=== PATIENT | female | born 1930 | race Caucasian/White ===

== ENCOUNTER 2017-05-07 12:50 | Emergency (ER) | payer MEDICARE ==
[2017-05-07 12:57] VITALS: BP 189/87
--- NOTE | 2017-05-07 14:10 | UC ---
Back Pain HPI - HPI Summary HPI Summary: L mid back pain, sudden onset since picking up heavy lid to toilet tank 4 days ago. Denies numbness, tingling, weakness, or trouble with bowel or bladder. Has osteoporosis, no hx of back injury or surgery. - History of Current Complaint Chief Complaint: UCBackPain Stated Complaint: BACK PAIN Time Seen by Provider: 05/07/17 13:48 Hx Obtained From: Patient ?: No Onset/Duration: Sudden Onset Timing: Constant Severity Initially: Moderate Severity Currently: Moderate Back Pain: Is Discrete @ Character: Spasmodic, Stiffness Aggravating: Movement, Bending Alleviating: Rest Associated Signs And Symptoms: Negative: Swelling, Redness, Bruising - Allergies/Home Medications Allergies/Adverse Reactions: Allergies Allergy/AdvReac Type Severity Reaction Status Date / Time No Known Allergies Allergy Verified 07/15/15 21:20 PMH/Surg Hx/FS Hx/Imm Hx Previously Healthy: Yes - Surgical History Surgical History: Yes Surgery Procedure, Year, and Place: cholecystectomy - Social History Occupation: Retired Lives: Alone Alcohol Use: None Substance Use Type: None Smoking Status (MU): Light Every Day Tobacco Smoker Type: Cigarettes Have You Smoked in the Last Year: Yes Household Exposure Type: Cigarettes - Immunization History Most Recent Influenza Vaccination: 2013 Most Recent Tetanus Shot: unknown Most Recent Pneumonia Vaccination: 2013 Review of Systems Constitutional: Negative Skin: Negative Eyes: Negative ENT: Negative Respiratory: Negative Cardiovascular: Negative Gastrointestinal: Negative Genitourinary: Negative Motor: Negative Neurovascular: Negative Musculoskeletal: Arthralgia - L mid back Neurological: Negative Psychological: Negative All Other Systems Reviewed And Are Negative: Yes Physical Exam Triage Information Reviewed: Yes Appearance: No Pain Distress, Well-Nourished, Other: - significant kyphosis Vital Signs: Initial Vital Signs Temp 98 F 05/07/17 12:54 Pulse 83 05/07/17 12:54 Resp 16 05/07/17 12:54 BP 189/87 05/07/17 12:54 Pulse Ox 100 05/07/17 12:54 Vital Signs Reviewed: Yes Eye Exam: Normal, Other - s/p cataract surgery, PERRL Eyes: Positive: Conjunctiva Clear ENT Exam: Normal ENT: Positive: Normal ENT inspection, Hearing grossly normal, Pharynx normal, TMs normal Neck exam: Normal Neck: Positive: Supple, Nontender, No Lymphadenopathy Respiratory Exam: Normal Respiratory: Positive: Chest non-tender, Lungs clear, Normal breath sounds, No respiratory distress, No accessory muscle use Cardiovascular Exam: Normal Cardiovascular: Positive: RRR, No Murmur Musculoskeletal Exam: Other - generalized weakness d/t age, no focal weakness Musculoskeletal: Positive: Strength Intact, ROM Intact, Other: - pain over L paraspinal muscles Neurological Exam: Normal Neurological: Positive: Alert Psychological Exam: Normal Skin Exam: Normal Back Pain Course/Dx - Differential Dx/Diagnosis Provider Diagnoses: L back strain Discharge - Discharge Plan Condition: Stable Disposition: HOME Prescriptions: Naproxen TAB* [Naprosyn 375 mg TAB*] 375 mg PO BID PRN #10 tab PRN Reason: pain Patient Education Materials: Low Back Strain (ED) Referrals: Wilma Gonzalez MD [Primary Care Provider] - 1 Week Additional Instructions: Apply warm compresses to the painful area for 20-30 minutes 4 times per day, and try to stay as active as possible.
--- NOTE | 2017-05-07 14:42 | RAD ---
HISTORY: Back pain following lifting injury COMPARISONS: Chest x-ray dated July 19, 2015 VIEWS: 2, Frontal and lateral views of the lower thoracic and lumbar spine. FINDINGS: ALIGNMENT: There is retrolisthesis of L3 on L4 and L2 on L3 VERTEBRAL BODIES: There is diffuse osteopenia. There is mild loss of vertebral body height at T12, of uncertain acuity, new from 2015. JOINTS: There is diffuse facet hypertrophic change INTERVERTEBRAL DISCS: There is diffuse loss of intervertebral disc height. SOFT TISSUE: Unremarkable OTHER: The visualized lungs are clear. IMPRESSION: 1. OSTEOPENIA. 2. 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 3. DEGENERATIVE DISC DISEASE AND OSTEOARTHRITIS
== END 2017-05-07 15:09 | disposition home or self-care (01) ==
LOC: UCEAST 12:50
DX: S29.012A Strain of muscle and tendon of back wall of thorax, initial encounter (principal); X50.0XXA Overexertion from strenuous movement or load, initial encounter; F17.210 Nicotine dependence, cigarettes, uncomplicated
CPT/HCPCS: 72080; 99212; G0463

== ENCOUNTER → 2017-05-19 12:43 | Emergency (ER) | payer MEDICARE ==
[~2017-05-19 12:43] MED LIST: HYDROcodone/ACETAMIN 5-325 MG* 1 TAB PO ONE
[2017-05-19 16:38] VITALS: BP 141/63
--- NOTE | 2017-05-19 21:18 | ED ---
Cherri Subramanian Edward, scribed for Marcelo Ng MD on 05/19/17 at 1411 . Back Pain - HPI Summary HPI Summary: 87 y/o female presents to ED c/o lower back pain due while lifting a toilet seat. The back pain is rated @ 6/10 at triage. Back pain is aggravated with movement. The injury occurred last week. Patient has had trouble walking due to the back pain. Associated sx: loss of appetite, diarrhea, and constipation. Patient took a stool softener to relieve constipation a week ago. Patient went to [facility] five days ago but the pain has not gotten better. - History of Current Complaint Chief Complaint: EDBackInjuryPain Stated Complaint: BACK PAIN Time Seen by Provider: 05/19/17 14:05 Hx Obtained From: Patient Onset/Duration: Sudden Onset, Lasting Weeks, Still Present Onset/Duration: Started Weeks Ago - Last week, Still Present Timing: Constant Pain Intensity: 6 Pain Scale Used: 0-10 Numeric Aggravating Symptom(s): Movement Associated Signs And Symptoms: Positive: Other - Trouble walking, constipation, diarrhea, loss of appetite - Allergies/Home Medications Allergies/Adverse Reactions: Allergies Allergy/AdvReac Type Severity Reaction Status Date / Time No Known Allergies Allergy Verified 05/19/17 14:00 Home Medications: Home Medications Acetaminophen TAB* [Tylenol TAB*] 3 tab PO Q6H 05/19/17 [History Confirmed 05/19] PMH/Surg Hx/FS Hx/Imm Hx Previously Healthy: No Cardiovascular History: Reports: Hx Hypertension Respiratory History: Reports: Other Respiratory Problems/Disorders - sphenoid sinusitis GI History: Reports: Hx Diverticulosis Denies: Other GI Disorders - choley Musculoskeletal History: Reports: Hx Arthritis Sensory History: Reports: Hx Contacts or Glasses, Hx Hearing Aid, Hx Hearing Problem Opthamlomology History: Reports: Hx Contacts or Glasses - Cancer History Cancer Type, 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 Left lower leg - Surgical History Surgery Procedure, Year, and Place: cholecystectomy - Immunization History Date of Tetanus Vaccine: Within 10 years Date of Influenza Vaccine: 2011 Infectious Disease History: No Infectious Disease History: Denies: Hx Clostridium Difficile, Hx Hepatitis, Hx Human Immunodeficiency Virus (HIV), Hx of Known/Suspected MRSA, Hx Shingles, Hx Tuberculosis, Hx Known/ Suspected VRE, Hx Known/Suspected VRSA, History Other Infectious Disease, Traveled Outside the [place] in Last 30 Days - Family History Known Family History: Positive: Cardiac Disease - DC - mom, Hypertension - Mom, Other - Alzheimer's - father () - Social History Alcohol Use: None Substance Use Type: Reports: None Smoking Status (MU): Light Every Day Tobacco Smoker Type: Cigarettes Have You Smoked in the Last Year: Yes Review of Systems Constitutional: Negative Eyes: Negative ENT: Negative Cardiovascular: Negative Respiratory: Negative Positive: Diarrhea, Other - Constipation Genitourinary: Negative Positive: Arthralgia - Lower back pain Skin: Negative Neurological: Negative Psychological: Normal All Other Systems Reviewed And Are Negative: Yes Physical Exam Triage Information Reviewed: Yes Vital Signs On Initial Exam: Initial Vitals Temp Pulse Resp BP Pulse Ox 97 F 53 20 83/49 97 05/19/17 13:18 05/19/17 13:18 05/19/17 13:18 05/19/17 13:18 05/19/17 13:18 Vital Signs Reviewed: Yes Appearance: Positive: Well-Appearing, No Pain Distress Skin: Positive: Warm, Skin Color Reflects Adequate Perfusion, Dry Head/Face: Positive: Normal Head/Face Inspection Eyes: Positive: Normal ENT: Positive: Normal ENT inspection Neck: Positive: Supple, Nontender Respiratory/Lung Sounds: Positive: Clear to Auscultation, Breath Sounds Present Cardiovascular: Positive: RRR Abdomen Description: Positive: Nontender, Soft Bowel Sounds: Positive: Present Musculoskeletal: Positive: Strength/ROM Intact, Pain @ - Tender @ L cyatic, Other - Positive straight leg raise. - Jose Carlos Coma Scale Coma Scale Total: 15 Diagnostics - Vital Signs Vital Signs Temp Pulse Resp BP Pulse Ox 05/19/17 14:00 68 141/51 96 05/19/17 13:52 73 95 05/19/17 13:51 98.1 F 66 16 128/52 96 05/19/17 13:50 128/52 05/19/17 13:18 97 F 53 20 83/49 97 - Laboratory Lab Statement: Any lab studies that have been ordered have been reviewed, and results considered in the medical decision making process. Back Pain Course/Dx - Course Course Of Treatment: Ms. Don agravated her back a wek or so ago and was seen in [facility] where she had x-rays. She was D/C'd on naprosyn but it is not helping. She is barely able to take care of herself and reports that she is not eating because it is too much trouble while in pain. She was given Lannon here for pain and was much improved and felt she could manage at home. I wanted to give her a stool softener while take Lannon be she says she has it at home already. - Diagnoses Provider Diagnoses: Low back strain Discharge - Discharge Plan Condition: Stable Disposition: HOME Prescriptions: HYDROcodone/ACETAMIN 5-325 MG* [Lannon 5-325 TAB*] 1 tab PO Q6H PRN #20 tab MDD 4 PRN Reason: Pain Patient Education Materials: Low Back Strain (ED) Referrals: Wilma Gonzalez MD [Primary Care Provider] - 3 Days (F/U IN 2-3 DAYS) The documentation as recorded by the Cherri nguyen Edward accurately reflects the service I personally performed and the decisions made by me, Marcelo Ng MD.
== END | disposition home or self-care (01) ==
LOC: ED 12:43
DX: S39.012A Strain of muscle, fascia and tendon of lower back, initial encounter (principal); M54.5 Low back pain; F17.210 Nicotine dependence, cigarettes, uncomplicated; R19.7 Diarrhea, unspecified; X58.XXXA Exposure to other specified factors, initial encounter; Y93.9 Activity, unspecified; Y92.9 Unspecified place or not applicable; Y99.9 Unspecified external cause status
CPT/HCPCS: 99283

== ENCOUNTER 2017-08-08 11:54 | Inpatient (IN) | payer MEDICARE ==
[2017-08-08] MEDS ORDERED: NS 0.9% 1000 ML* 1,000 ML IV SCH (12:30)
[2017-08-08] MEDS: NS 0.9% 1000 ML* 2,000 ML IV ONE ×2 (12:43→12:46)
[2017-08-08 13:03] LABS: Comments Flag Yes; Hematocrit 43 % (35-47); Hemoglobin 14.5 g/dl (12.0-16.0); Mean Corpuscular HGB Conc 34 g/dl (31-36); Mean Corpuscular Hemoglobin 33 pg (27-31); Mean Corpuscular Volume 97 fL (80-97); Mean Platelet Volume 6 um3 (7.4-10.4); Red Blood Count 4.37 10^6/ul (4.0-5.4); Red Cell Distribution Width 17 % (10.5-15); White Blood Count 10.6 10^3/ul (3.5-10.8)
[2017-08-08 13:10] LABS: Albumin 2.9 g/dL (3.2-5.2); C Reactive Protein 6.38 mg/L (< 5.00); Calcium 8.9 mg/dL (8.6-10.3); EGFR African American 72.1 (>60); EGFR Non-African American 56.1 (>60); Globulin 2.6 g/dL (2-4); Magnesium 1.9 mg/dL (1.9-2.7); Potassium 4.3 mmol/L (3.5-5.0); Total Bilirubin 0.7 mg/dL (0.2-1.0); Total Protein 5.5 g/dL (6.4-8.9)
[2017-08-08 13:12] LABS: Troponin I 0.01 ng/mL (<0.04)
--- NOTE | 2017-08-08 13:26 | RAD ---
HISTORY: Near syncope COMPARISONS: July 19, 2015 VIEWS: 1: frontal portable view of the chest at 1:21 PM FINDINGS: LINES AND TUBES: None. CARDIOMEDIASTINAL SILHOUETTE: The cardiomediastinal silhouette is normal for portable technique. PLEURA: The costophrenic angles are sharp. No pleural abnormalities are noted. LUNG PARENCHYMA: There is hyperinflation. ABDOMEN: The upper abdomen is clear. There is no subphrenic gas. BONES AND SOFT TISSUES: No bone or soft tissue abnormalities are noted. IMPRESSION: HYPERINFLATION. NO ACTIVE CARDIOPULMONARY DISEASE.
--- NOTE | 2017-08-08 13:46 | RAD ---
CLINICAL HISTORY: Low back pain, hypertension COMPARISON: None relevant available time dictation TECHNIQUE: Multiple contiguous axial CT scans were obtained of the abdomen and pelvis, without intravenous contrast enhancement. Coronal and sagittal multiplanar reformations are submitted for review. Oral contrast was not administered. FINDINGS: The study is limited by the lack of intravenous contrast. This limits evaluation of the solid organs and vasculature. LUNG BASES: The lung bases are clear. LIVER: The liver is normal in shape, size, contour, and attenuation. BILE DUCTS: There is no intrahepatic or extrahepatic biliary dilatation. GALLBLADDER: The gallbladder is not visualized. Surgical clips are noted in the gallbladder fossa. PANCREAS: The pancreas is normal, without mass or ductal dilatation. SPLEEN: Normal in size and appearance. UPPER GI TRACT: Evaluation of the gastrointestinal tract is limited by incomplete gastric distention. The upper GI tract is unremarkable. SMALL BOWEL AND MESENTERY: The small bowel is normal in contour, course, and caliber. There is no obstruction or dilatation. COLON: There is extensive diverticulosis throughout the colon, predominantly within the descending and sigmoid colon. There is a large stool ball within the rectum. ADRENALS: Normal bilaterally. KIDNEYS: The kidneys are normal in shape, size, contour, and axis. There is no hydronephrosis or nephrolithiasis. BLADDER: The bladder is smooth in contour. PELVIC ORGANS: The uterus and adnexa are grossly normal for technique. AORTA: There is calcific atherosclerotic disease of the abdominal aorta and its branches, without aneurysmal dilatation IVC: Unremarkable LYMPH NODES: There is no lymphadenopathy by size criteria. ABDOMINAL WALL: There is no evidence for abdominal wall hernia. BONES AND SOFT TISSUES: Degenerative changes are noted of the spine. Please becoming CT of the lumbar spine OTHER: None IMPRESSION: 1. DIVERTICULOSIS. 2. LARGE STOOL BALL WITHIN THE RECTUM. 3. ATHEROSCLEROSIS
--- NOTE | 2017-08-08 13:50 | RAD ---
HISTORY: Low back pain COMPARISONS: CT of the abdomen and pelvis performed on the same date, thoracic lumbar spine dated May 07, 2017 TECHNIQUE: Multiple contiguous axial CT scans were obtained of the lumbar spine without intravenous contrast, with coronal and sagittal multiplanar reformations. FINDINGS: SPINAL CANAL: Evaluation of the central canal is limited on CT technique; however, there is no obvious canalicular mass or epidural hemorrhage. ALIGNMENT: There is a levoscoliotic curvature of the spine. There is grade 1 retrolisthesis of L2 on L3. VERTEBRAL BODIES: There is diffuse osteopenia. There has been interval progression of a compression deformity of the T12 vertebral body with moderate osseous retropulsion. JOINTS: There is diffuse facet osteoarthritic change MUSCULATURE: There is moderate atrophy. INTERVERTEBRAL DISCS: There is diffuse loss of intervertebral disc height throughout the spine. AXIAL IMAGES: T11-T12: There is moderate narrowing of central canal secondary to osseous retropulsion. T12-L1: There is mild narrowing of central canal secondary to osseous retropulsion. L1-L2: There is no osseous neural foraminal narrowing or central canal stenosis. L2-L3: There is broad-based disc bulge/rolled disc. There is moderate bilateral neuroforaminal narrowing. There is moderate to severe narrowing of the central canal. L3-L4: There is ligamentous and facet hypertrophy with a broad-based disc bulge. There is moderate narrowing of the central canal. There is severe bilateral neuroforaminal narrowing. L4-L5: There is a broad-based disc bulge with ligamentous and facet hypertrophy. There is moderate narrowing of central canal. There is moderate bilateral neural foraminal narrowing. L5-S1: There is bilateral facet hypertrophy with marginal osteophyte formation at the neural foramina bilaterally. There is severe left and moderate right neuroforaminal narrowing. There is no significant central canal stenosis. SOFT TISSUES: There is atherosclerosis of the aorta OTHER: None IMPRESSION: 1. OSTEOPENIA. 2. SCOLIOSIS. 3. INTERVAL PROGRESSION OF THE COMPRESSION DEFORMITY OF T12, WITH MODERATE OSSEOUS RETROPULSION RESULTING IN MODERATE NARROWING OF THE CENTRAL CANAL AT T11-T12 AND MILD NARROWING AT T12-L1. 4. DEGENERATIVE DISC DISEASE AND OSTEOARTHRITIS. THIS RESULTS IN MODERATE TO SEVERE NARROWING OF THE CENTRAL CANAL AT L2-L3, WITH MODERATE NARROWING AT L3-L4 AND L4-L5. 5. THERE IS MULTILEVEL NEURAL FORAMINAL NARROWING DESCRIBED ABOVE
[2017-08-08 13:53] LABS: TSH (Thyroid Stimulating Horm) 7.87 mcIU/mL (0.34-5.60)
[2017-08-08] MEDS ORDERED: Magnesium Hydroxide LIQ* 30 ML UDC PO PRN (15:24)
[2017-08-08] MEDS ORDERED: Ondansetron INJ* 2 MG/ML VIAL IV PRN (15:30)
[2017-08-08 16:11] LABS: Free T4 1.15 ng/dL (0.61-1.12)
--- NOTE | 2017-08-08 17:33 | ED ---
Flaco Subramanian Nikita, scribed for Luiz Aguila MD on 08/08/17 at 1249 . Neurological HPI - HPI Summary HPI Summary: This patient is an 87 year old F presenting to ED with a chief complaint of weakness since 1100. The patient rates the pain 0/10 in severity. Symptoms aggravated by nothing. Symptoms alleviated by nothing. Patient reports lower back pain (since 2 months ago), daughter reports fall and unresponsiveness, decreased appetite, and diarrhea then constipation for 7 days. Patient denies abdominal pain, CP, fever, chills, cough, and urinary symptoms. Son reports UTI last week. - History of Current Complaint Chief Complaint: EDWeakness Stated Complaint: NEAR SYNCOPE Time Seen by Provider: 08/08/17 12:34 Hx Obtained From: Patient, Family/Information Systems Administrator Onset/Duration: Sudden Onset - 1100 Timing: Sudden Onset Current Severity: None Pain Intensity: 0 Pain Scale Used: 0-10 Numeric Character: Other: - Patient reports lower back pain (since 2 months ago), daughter reports fall and unresponsiveness, decreased appetite, and diarrhea then constipation for 7 days. Patient denies abdominal pain, CP, fever, chills, cough, and urinary symptoms. - Additional Pertinent History Primary Care Physician: [id number] - Allergy/Home Medications Allergies/Adverse Reactions: Allergies Allergy/AdvReac Type Severity Reaction Status Date / Time No Known Allergies Allergy Verified 08/08/17 11:59 PMH/Surg Hx/FS Hx/Imm Hx Cardiovascular History: Reports: Hx Hypertension Respiratory History: Reports: Other Respiratory Problems/Disorders - sphenoid sinusitis GI History: Reports: Hx Diverticulosis Denies: Other GI Disorders - choley Musculoskeletal History: Reports: Hx Arthritis Sensory History: Reports: Hx Contacts or Glasses, Hx Hearing Aid, Hx Hearing Problem Opthamlomology History: Reports: Hx Contacts or Glasses - Cancer History Cancer Type, 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 Left lower leg - Surgical History Surgery Procedure, Year, and Place: cholecystectomy - Immunization History Date of Tetanus Vaccine: Within 10 years Date of Influenza Vaccine: 2011 Infectious Disease History: No Infectious Disease History: Denies: Hx Clostridium Difficile, Hx Hepatitis, Hx Human Immunodeficiency Virus (HIV), Hx of Known/Suspected MRSA, Hx Shingles, Hx Tuberculosis, Hx Known/ Suspected VRE, Hx Known/Suspected VRSA, History Other Infectious Disease, Traveled Outside the [place] in Last 30 Days - Family History Known Family History: Positive: Cardiac Disease - [place] - mom, Hypertension - Mom, Other - Alzheimer's - father () - Social History Alcohol Use: None Substance Use Type: Reports: None Smoking Status (MU): Light Every Day Tobacco Smoker Type: Cigarettes Have You Smoked in the Last Year: Yes Review of Systems Negative: Fever, Chills Negative: Chest Pain Negative: Cough Positive: Diarrhea - before constipation, Other - Constipation for 7 days, decreased appetite. Negative: Abdominal Pain Positive: no symptoms reported Positive: Other - Lower back pain, fall this morning Neurological: Other - Unresponsiveness after fall this morning All Other Systems Reviewed And Are Negative: Yes Physical Exam Triage Information Reviewed: Yes Vital Signs On Initial Exam: Initial Vitals Temp Pulse Resp BP Pulse Ox 97.2 F 76 20 94/82 98 08/08/17 11:55 08/08/17 11:55 08/08/17 11:55 08/08/17 11:55 08/08/17 11:55 Vital Signs Reviewed: Yes Appearance: Positive: No Pain Distress, Ill-Appearing - Moderate Skin: Positive: Warm, Skin Color Reflects Adequate Perfusion, Dry Head/Face: Positive: Normal Head/Face Inspection Eyes: Positive: EOMI, KYRA ENT: Positive: Other - Dry oral mucosa Neck: Positive: Supple, Nontender, Other: - Nondistended Respiratory/Lung Sounds: Positive: Clear to Auscultation, Breath Sounds Present Cardiovascular: Positive: Tachycardia Abdomen Description: Positive: Nontender, Soft Bowel Sounds: Positive: Hypoactive Musculoskeletal: Positive: Normal, Strength/ROM Intact, Other - Pt can move all four extremities Neurological: Positive: Normal, Sensory/Motor Intact, Alert, Oriented to Person Place, Time, Other - follows commands, speaks spontaneously Diagnostics - Vital Signs Vital Signs Temp Pulse Resp BP Pulse Ox 08/08/17 11:55 97.2 F 76 20 94/82 98 - Laboratory Lab Results: Lab Results 08/08/17 08/08/17 08/08/17 Range/Units 12:40 12:40 12:40 WBC (3.5-10.8) 10^3/ul RBC (4.0-5.4) 10^6/ul Hgb (12.0-16.0) g/dl Hct (35-47) % MCV (80-97) fL MCH (27-31) pg MCHC (31-36) g/dl RDW (10.5-15) % Plt Count (150-450) 10^3/ul MPV (7.4-10.4) um3 Neut % (Auto) (38-83) % Lymph % (Auto) (25-47) % [place] % (Auto) (1-9) % Eos % (Auto) (0-6) % Baso % (Auto) (0-2) % Absolute Neuts (auto) (1.5-7.7) 10^3/ul Absolute Lymphs (auto) (1.0-4.8) 10^3/ul Absolute Monos (auto) (0-0.8) 10^3/ul Absolute Eos (auto) (0-0.6) 10^3/ul Absolute Basos (auto) (0-0.2) 10^3/ul Absolute Nucleated RBC 10^3/ul Nucleated RBC % INR (Anticoag Therapy) 0.88 L (0.89-1.11) APTT 28.3 (26.0-36.3) seconds Sodium 127 L (133-145) mmol/L Potassium 4.3 (3.5-5.0) mmol/L Chloride 94 L (101-111) mmol/L Carbon Dioxide 22 (22-32) mmol/L Anion Gap 11 (2-11) mmol/L BUN 16 (6-24) mg/dL Creatinine 0.94 (0.51-0.95) mg/dL Est GFR ( Amer) 72.1 (>60) Est GFR (Non-Af Amer) 56.1 (>60) BUN/Creatinine Ratio 17.0 (8-20) Glucose 132 H (70-100) mg/dL Lactic Acid (0.5-2.0) mmol/L Calcium 8.9 (8.6-10.3) mg/dL Magnesium 1.9 (1.9-2.7) mg/dL Total Bilirubin 0.70 (0.2-1.0) mg/dL AST 41 H (13-39) U/L ALT 22 (7-52) U/L Alkaline Phosphatase 103 (34-104) U/L Total Creatine Kinase 36 (10-223) U/L CK-MB (CK-2) 2.9 (0.6-6.3) ng/mL Troponin I 0.01 (<0.04) ng/mL C-Reactive Protein 6.38 H (< 5.00) mg/L B-Natriuretic Peptide 291 H ( - 100) pg/mL Total Protein 5.5 L (6.4-8.9) g/dL Albumin 2.9 L (3.2-5.2) g/dL Globulin 2.6 (2-4) g/dL Albumin/Globulin Ratio 1.1 (1-3) Lipase 66 (11.0-82.0) U/L TSH 7.87 H (0.34-5.60) mcIU/mL Free T4 1.15 H (0.61-1.12) ng/dL Free T3 3.00 (2.5-3.9) pg/mL 08/08/17 08/08/17 Range/Units 12:40 12:40 WBC 10.6 (3.5-10.8) 10^3/ul RBC 4.37 (4.0-5.4) 10^6/ul Hgb 14.5 (12.0-16.0) g/dl Hct 43 (35-47) % MCV 97 (80-97) fL MCH 33 H (27-31) pg MCHC 34 (31-36) g/dl RDW 17 H (10.5-15) % Plt Count 481 H (150-450) 10^3/ul MPV 6 L (7.4-10.4) um3 Neut % (Auto) 77.3 (38-83) % Lymph % (Auto) 13.9 L (25-47) % [place] % (Auto) 7.7 (1-9) % Eos % (Auto) 0.6 (0-6) % Baso % (Auto) 0.5 (0-2) % Absolute Neuts (auto) 8.2 H (1.5-7.7) 10^3/ul Absolute Lymphs (auto) 1.5 (1.0-4.8) 10^3/ul Absolute Monos (auto) 0.8 (0-0.8) 10^3/ul Absolute Eos (auto) 0.1 (0-0.6) 10^3/ul Absolute Basos (auto) 0.1 (0-0.2) 10^3/ul Absolute Nucleated RBC 0.02 10^3/ul Nucleated RBC % 0.2 INR (Anticoag Therapy) (0.89-1.11) APTT (26.0-36.3) seconds Sodium (133-145) mmol/L Potassium (3.5-5.0) mmol/L Chloride (101-111) mmol/L Carbon Dioxide (22-32) mmol/L Anion Gap (2-11) mmol/L BUN (6-24) mg/dL Creatinine (0.51-0.95) mg/dL Est GFR ( Amer) (>60) Est GFR (Non-Af Amer) (>60) BUN/Creatinine Ratio (8-20) Glucose (70-100) mg/dL Lactic Acid 3.1 H* (0.5-2.0) mmol/L Calcium (8.6-10.3) mg/dL Magnesium (1.9-2.7) mg/dL Total Bilirubin (0.2-1.0) mg/dL AST (13-39) U/L ALT (7-52) U/L Alkaline Phosphatase (34-104) U/L Total Creatine Kinase (10-223) U/L CK-MB (CK-2) (0.6-6.3) ng/mL Troponin I (<0.04) ng/mL C-Reactive Protein (< 5.00) mg/L B-Natriuretic Peptide ( - 100) pg/mL Total Protein (6.4-8.9) g/dL Albumin (3.2-5.2) g/dL Globulin (2-4) g/dL Albumin/Globulin Ratio (1-3) Lipase (11.0-82.0) U/L TSH (0.34-5.60) mcIU/mL Free T4 (0.61-1.12) ng/dL Free T3 (2.5-3.9) pg/mL Result Diagrams: 08/08/17 12:40 08/08/17 12:40 Lab Statement: Any lab studies that have been ordered have been reviewed, and results considered in the medical decision making process. - Radiology CXR Radiology Interpretation Completed By: Radiologist - HYPERINFLATION. NO ACTIVE CARDIOPULMONARY DISEASE. ED physician has reviewed this radiology report and agrees. - CT L-spine CT Interpretation Completed By: Radiologist - 1. OSTEOPENIA. 2. SCOLIOSIS. 3. INTERVAL PROGRESSION OF THE COMPRESSION DEFORMITY OF T12, WITH MODERATE OSSEOUS RETROPULSION RESULTING IN MODERATE NARROWING OF THE CENTRAL CANAL AT T11 -T12 AND MILD NARROWING AT T12-L1. 4. DEGENERATIVE DISC DISEASE AND OSTEOARTHRITIS. THIS RESULTS IN MODERATE TO SEVERE NARROWING OF THE CENTRAL CANAL AT L2-L3, WITH MODERATE NARROWING AT L3-L4 AND L4-L5. 5. THERE IS MULTILEVEL NEURAL FORAMINAL NARROWING DESCRIBED ABOVE. ED physician has reviewed this radiology report and agrees. Abd/Pel CT Interpretation Completed By: Radiologist - 1. DIVERTICULOSIS. 2. LARGE STOOL BALL WITHIN THE RECTUM. 3. ATHEROSCLEROSIS. ED physician has reviewed this radiology report and agrees. - EKG 1501 Cardiac Rate: NL - 83 bpm EKG Rhythm: Sinus Rhythm EKG Interpretation: Positive PVCs, Flip T in lateral leads Course/Dx - Course Assessment/Plan: This patient is an 87 year old F presenting to ED with a chief complaint of weakness since 1100. The patient rates the pain 0/10 in severity. Symptoms aggravated by nothing. Symptoms alleviated by nothing. Patient reports lower back pain (since 2 months ago), daughter reports fall and unresponsiveness , decreased appetite, and diarrhea then constipation for 7 days. Patient denies abdominal pain, CP, fever, chills, cough, and urinary symptoms. Medications reviewed. CXR reveals HYPERINFLATION. NO ACTIVE CARDIOPULMONARY DISEASE. L- spine CT reveals 1. OSTEOPENIA. 2. SCOLIOSIS. 3. INTERVAL PROGRESSION OF THE COMPRESSION DEFORMITY OF T12, WITH MODERATE OSSEOUS RETROPULSION RESULTING IN MODERATE NARROWING OF THE CENTRAL CANAL AT T11-T12 AND MILD NARROWING AT T12- L1. 4. DEGENERATIVE DISC DISEASE AND OSTEOARTHRITIS. THIS RESULTS IN MODERATE TO SEVERE NARROWING OF THE CENTRAL CANAL AT L2-L3, WITH MODERATE NARROWING AT L3 -L4 AND L4-L5. 5. THERE IS MULTILEVEL NEURAL FORAMINAL NARROWING DESCRIBED ABOVE. Abdomen/Pelvis CT reveals 1. DIVERTICULOSIS. 2. LARGE STOOL BALL WITHIN THE RECTUM. 3. ATHEROSCLEROSIS. ED physician has reviewed this radiology report and agrees. EKG reveals NSR at 83 bpm, positive PVCs, and flip T in lateral leads. Consulted with Dr. Good at 1347 who accepts pt for admission. In the ED course, pt's BP was 102/47. Pt was also given fluids in the ED course. Pt will be admitted to ED. Pt is agreeable with this plan. ADMIT HOSPITALIST. - Diagnoses Provider Diagnoses: Weakness, Hypotension, Near syncope - Physician Notifications Discussed Care Of Patient With: Conrado Good Time Discussed With Above Provider: 13:47 Instructed by Provider To: Other - Consulted with Dr. Good who accepts pt for admission. - Critical Care Time Critical Care Time: 30-74 min Discharge - Discharge Plan Condition: Fair Disposition: ADMITTED TO [facility] documentation as recorded by the Flaco nguyen Nikita accurately reflects the service I personally performed and the decisions made by me, Luiz Aguila MD.
--- NOTE | 2017-08-08 20:32 | HP ---
CC: Dr. Gonzalez * ADMISSION HISTORY AND PHYSICAL: DATE OF ADMISSION: 08/08/17 PRIMARY CARE PROVIDER: Dr. Gonzalez. HEALTHCARE PROXY: Her son, Sadi. CODE STATUS: Full. Discussed with the patient with her son present. SOURCE OF INFORMATION: History obtained from interview with the patient and her son. RELIABILITY: From son was good. From the patient, average to poor. CHIEF COMPLAINT: Fall and weakness. HISTORY OF PRESENT ILLNESS: This is an 87-year-old female, who suffered a T12 fracture in the beginning of June after lifting the top of her toilet bowl. Since that time, she has had progressive decline with increasing malaise and weakness. Around the same time, has had a back injury. She started a BRAT diet secondary to diarrhea several months ago and also took Imodium approximately 2 weeks prior to presentation. Since that time over the last 12 days, she has had constipation. Over the last several months, the patient is eating and drinking far less. Approximately 2 weeks prior to presentation, her urine was noted to be dark and urinalysis was performed, which was reportedly consistent with urinary tract infection and she was treated with antibiotics for 5 days. Today, her son comes to see her 2 to 3 times per day and while there, she had used the bathroom and coming out, got weak and slumped to the floor. She had no head strike, no loss of consciousness, no seizure-like activity. No preceding symptoms, noting she just felt weak and her legs could not support her. She denied chest pain or shortness of breath, nausea or vomiting. No lightheadedness or other associated symptoms. She has had no dysuria, frequency, or hesitancy. No cough, fever, chills, or night sweats. The patient has been losing weight over the last couple of months with her decreased oral intake, although there is no weight currently in the emergency room to compare to. It appears that her previous weights in May were approximately 62.5 kilograms. On the presentation to the emergency room, the patient's blood pressure was 59/29. After 2 L of volume resuscitation when seen by this author, her blood pressure was 126/68. When seen by this author, she was asymptomatic. PAST MEDICAL HISTORY: Includes extensive tobacco use, COPD, hypertension, episodes of epistaxis, palpitations, recent urinary tract infection, recent T12 compression fracture, remote cholecystectomy. MEDICATIONS: Home medications include metoprolol XL 50 mg daily. FAMILY HISTORY: No history of CAD. Positive for COPD. SOCIAL HISTORY: History of tobacco use, quit 2 months prior. No longer drinks any alcohol. Lives alone in [facility]. REVIEW OF SYSTEMS: As per HPI, otherwise all other systems negative. PHYSICAL EXAMINATION GENERAL: Elderly female, lying flat on bed. She is interactive. VITAL SIGNS: In the emergency room, 126/68, heart rate 83, respiratory rate 16 , and she is 96% on room air. HEENT: Oropharynx is clear. She has dry mucous membranes. Sclerae anicteric. NECK: She has nonelevated JVD. LUNGS: Her lungs are clear to auscultation. HEART: Regular rate and rhythm. No murmurs, rubs, or gallops. ABDOMEN: Scaphoid, soft, nontender, nondistended. EXTREMITIES: Warm, well perfused. NEUROLOGIC: She is alert and oriented x3. Her cranial nerves are intact. PSYCH: No apparent anxiety, agitation, or depression. SKIN: Her skin has diffuse lesions, most prominent on face, her left ear, her legs, consistent with seborrheic dermatitis and additionally basal cell carcinoma. DIAGNOSTIC STUDIES/LAB DATA: Labs reviewed: White blood cell count 10.6, hemoglobin 14.5, and platelets 481. INR 0.88. Sodium 127, chloride 94, BUN 16 , creatinine 0.94. Lactic acid 3.1. CRP 6.3. BNP 291. Albumin 2.9. TSH is 7.87. Lipase __wnl__. Urinalysis is pending. EKG: Normal sinus rhythm, left axis, late R-wave progression, downsloping ST depression in V5 alone, T-wave inversion in V5 and V6, Q waves in II, III, aVF, V2 through V4. Q waves are not new. CT spine, impression: Osteopenia, scoliosis, interval progression in the compression deformity at T12, multilevel neural foraminal degeneration. CT abdomen and pelvis: Diverticulosis, large stool ball within the rectum, atherosclerosis. Chest x-ray, impression: Hyperinflation. No active cardiopulmonary disease. ASSESSMENT AND PLAN: This is an 87-year-old female, several months decline after a T12 fracture, now presenting after a fall on the floor with increased weakness, found hypotensive in the emergency room. 1. Hypotension. In the setting of several months' deconditioning and increased intake and rapid response with 2 L of normal saline, this does appear to be volume mediated. However, this is in the recent setting of a urinary tract infection. A repeat urine culture is warranted. There does not appear to be any other sign of active infection. First troponin is negative, although cardiac etiology is potential. Repeat troponin, place on telemetry. Check transthoracic echocardiogram. TSH is elevated. We will add free T3 and T4, to monitor. Increased lactic acid in the setting of above, repeat now. 2. Stool impaction. The patient needs digital disimpaction as well as bowel regimen. 3. Hypothyroidism. Add free T3 and T4 to TSH. 4. T12 compression fracture. Progression noted on CAT scan. No neurological findings. 5. Hyponatremia in the setting of hypovolemia. Received 2 L normal saline, we will continue 150 cc for two additional liters, then stop. 6. DVT prophylaxis. Heparin subcu. [id number]/[facility] #: [id number] [facility]
[2017-08-08] MEDS: Senna TAB PO SCH (22:14)
[2017-08-08] MEDS: Docusate CAP* 100 MG PO SCH (22:16)
[2017-08-08] MEDS: Heparin VIAL(*) 5000 UNITS/ML VIAL (FIVE THOUSAND) SUBCUT SCH (22:16)
[2017-08-08] MEDS: NS 0.9% 1000 ML* 1,000 ML IV SCH (23:00)
[2017-08-08 23:53] LABS: Urine Bacteria Absent (Absent); Urine Bilirubin Negative (Negative); Urine Glucose Negative (Negative); Urine Nitrite Negative (Negative)
[2017-08-09] MEDS: Acetaminophen TAB* 325 MG PO PRN ×2 (02:54→20:40)
[2017-08-09] MEDS: Heparin VIAL(*) 5000 UNITS/ML VIAL (FIVE THOUSAND) SUBCUT SCH ×3 (05:10→20:41)
[2017-08-09 08:42] LABS: BUN/Creatinine Ratio 16.9 (8-20); Calcium 7.8 mg/dL (8.6-10.3); EGFR African American 110.4 (>60); EGFR Non-African American 85.8 (>60); Potassium 3.3 mmol/L (3.5-5.0)
[2017-08-09 08:46] LABS: Hematocrit 40 % (35-47); Hemoglobin 13.5 g/dl (12.0-16.0); Mean Corpuscular HGB Conc 34 g/dl (31-36); Mean Corpuscular Hemoglobin 33 pg (27-31); Mean Corpuscular Volume 97 fL (80-97); Mean Platelet Volume 7 um3 (7.4-10.4); Red Blood Count 4.08 10^6/ul (4.0-5.4); Red Cell Distribution Width 17 % (10.5-15); White Blood Count 8.4 10^3/ul (3.5-10.8)
[2017-08-09] MEDS ORDERED: Influenza VAC *QUAD* 2017-18* 0.5 ML SYRINGE IM ONE (09:00)
[2017-08-09] MEDS: NS 0.9% 1000 ML* 1,000 ML IV SCH (10:24)
[2017-08-09] MEDS: Senna TAB PO SCH ×2 (10:25→20:40)
[2017-08-09] MEDS: Docusate CAP* 100 MG PO SCH ×2 (10:28→20:40)
[2017-08-09] MEDS ORDERED: Potassium Chlor TAB* 20 MEQ TAB.ER PO ONE (10:41)
--- NOTE | 2017-08-09 14:56 | PN ---
Subjective Date of Service: 08/09/17 Interval History: Seen and examined this AM and again this afternoon with her son present She feels much better and more alert today Feels close to baseline Pain still present in back\ Denies any chest pain, SOB, N/V, LH Digital disimpaction performed but no BM since that time Feels appetite has improved since yesterday Objective Active Medications: Acetaminophen (Tylenol Tab*) 650 mg PO Q6H PRN PRN Reason: PAIN Last Admin: 08/09/17 02:54 Dose: 650 mg Docusate Sodium (Colace Cap*) 100 mg PO BID [facility] Last Admin: 08/09/17 10:28 Dose: 100 mg Heparin Sodium (Porcine) (Heparin Vial(*)) 5,000 units SUBCUT Q8HR [facility] Last Admin: 08/09/17 14:30 Dose: 5,000 units Sodium Chloride (Ns 0.9% 1000 Ml*) 1,000 mls @ 150 mls/hr IV PER RATE [facility] Stop: 08/09/17 22:09 Last Admin: 08/09/17 10:24 Dose: 150 mls/hr Magnesium Hydroxide (Milk Of Magnesia Liq*) 30 ml PO Q4H PRN PRN Reason: CONSTIPATION Ondansetron HCl (Zofran Inj*) 4 mg IV Q4H PRN PRN Reason: NAUSEA Senna (Senokot Tab*) 1 tab PO BID [facility] Last Admin: 08/09/17 10:25 Dose: 1 tab Vital Signs 08/08/17 08/08/17 08/08/17 15:30 16:00 16:30 Temperature Pulse Rate 78 77 72 Respiratory 14 15 12 Rate Blood Pressure (mmHg) O2 Sat by Pulse 96 94 96 Oximetry 08/08/17 08/08/17 08/08/17 16:48 18:00 19:11 Temperature 98.1 F 97.5 F 97.3 F Pulse Rate 72 Respiratory 18 Rate Blood Pressure 127/82 (mmHg) O2 Sat by Pulse 100 Oximetry 08/08/17 08/08/17 08/09/17 19:24 20:00 00:00 Temperature 97.3 F Pulse Rate 71 90 Respiratory 16 18 20 Rate Blood Pressure 125/75 132/82 (mmHg) O2 Sat by Pulse 100 100 Oximetry 08/09/17 08/09/17 08/09/17 03:51 07:31 08:00 Temperature 97.5 F 98.4 F Pulse Rate 81 78 Respiratory 20 18 18 Rate Blood Pressure 144/58 123/53 (mmHg) O2 Sat by Pulse 98 98 Oximetry 08/09/17 12:33 Temperature 98.8 F Pulse Rate 78 Respiratory 18 Rate Blood Pressure 140/67 (mmHg) O2 Sat by Pulse 97 Oximetry Oxygen Devices in Use Now: None Appearance: sitting up in bed, interactive, NAD Eyes: No Scleral Icterus, PERRLA Ears/Nose/Mouth/Throat: Clear Oropharnyx, Mucous Membranes Moist Neck: NL Appearance and Movements; NL JVP, Trachea Midline Respiratory: Symmetrical Chest Expansion and Respiratory Effort, Clear to Auscultation Cardiovascular: RRR Abdominal: NL Sounds; No Tenderness; No Distention, No Hepatosplenomegaly Lymphatic: No Cervical Adenopathy Extremities: No Edema Neurological: Alert and Oriented x 3 Result Diagrams: 08/09/17 08:01 08/09/17 08:01 Additional Lab and Data: Lab Results 08/08/17 08/08/17 08/08/17 Range/Units 12:40 12:40 12:40 WBC (3.5-10.8) 10^3/ul RBC (4.0-5.4) 10^6/ul Hgb (12.0-16.0) g/dl Hct (35-47) % MCV (80-97) fL MCH (27-31) pg MCHC (31-36) g/dl RDW (10.5-15) % Plt Count (150-450) 10^3/ul MPV (7.4-10.4) um3 Neut % (Auto) (38-83) % Lymph % (Auto) (25-47) % [place] % (Auto) (1-9) % Eos % (Auto) (0-6) % Baso % (Auto) (0-2) % Absolute Neuts (auto) (1.5-7.7) 10^3/ul Absolute Lymphs (auto) (1.0-4.8) 10^3/ul Absolute Monos (auto) (0-0.8) 10^3/ul Absolute Eos (auto) (0-0.6) 10^3/ul Absolute Basos (auto) (0-0.2) 10^3/ul Absolute Nucleated RBC 10^3/ul Nucleated RBC % INR (Anticoag Therapy) 0.88 L (0.89-1.11) APTT 28.3 (26.0-36.3) seconds Sodium 127 L (133-145) mmol/L Potassium 4.3 (3.5-5.0) mmol/L Chloride 94 L (101-111) mmol/L Carbon Dioxide 22 (22-32) mmol/L Anion Gap 11 (2-11) mmol/L BUN 16 (6-24) mg/dL Creatinine 0.94 (0.51-0.95) mg/dL Est GFR ( Amer) 72.1 (>60) Est GFR (Non-Af Amer) 56.1 (>60) BUN/Creatinine Ratio 17.0 (8-20) Glucose 132 H (70-100) mg/dL Lactic Acid (0.5-2.0) mmol/L Calcium 8.9 (8.6-10.3) mg/dL Magnesium 1.9 (1.9-2.7) mg/dL Total Bilirubin 0.70 (0.2-1.0) mg/dL AST 41 H (13-39) U/L ALT 22 (7-52) U/L Alkaline Phosphatase 103 (34-104) U/L Total Creatine Kinase 36 (10-223) U/L CK-MB (CK-2) 2.9 (0.6-6.3) ng/mL Troponin I 0.01 (<0.04) ng/mL C-Reactive Protein 6.38 H (< 5.00) mg/L B-Natriuretic Peptide 291 H ( - 100) pg/mL Total Protein 5.5 L (6.4-8.9) g/dL Albumin 2.9 L (3.2-5.2) g/dL Globulin 2.6 (2-4) g/dL Albumin/Globulin Ratio 1.1 (1-3) Lipase 66 (11.0-82.0) U/L TSH 7.87 H (0.34-5.60) mcIU/mL Free T4 1.15 H (0.61-1.12) ng/dL Free T3 3.00 (2.5-3.9) pg/mL 08/08/17 08/08/17 Range/Units 12:40 12:40 WBC 10.6 (3.5-10.8) 10^3/ul RBC 4.37 (4.0-5.4) 10^6/ul Hgb 14.5 (12.0-16.0) g/dl Hct 43 (35-47) % MCV 97 (80-97) fL MCH 33 H (27-31) pg MCHC 34 (31-36) g/dl RDW 17 H (10.5-15) % Plt Count 481 H (150-450) 10^3/ul MPV 6 L (7.4-10.4) um3 Neut % (Auto) 77.3 (38-83) % Lymph % (Auto) 13.9 L (25-47) % [place] % (Auto) 7.7 (1-9) % Eos % (Auto) 0.6 (0-6) % Baso % (Auto) 0.5 (0-2) % Absolute Neuts (auto) 8.2 H (1.5-7.7) 10^3/ul Absolute Lymphs (auto) 1.5 (1.0-4.8) 10^3/ul Absolute Monos (auto) 0.8 (0-0.8) 10^3/ul Absolute Eos (auto) 0.1 (0-0.6) 10^3/ul Absolute Basos (auto) 0.1 (0-0.2) 10^3/ul Absolute Nucleated RBC 0.02 10^3/ul Nucleated RBC % 0.2 INR (Anticoag Therapy) (0.89-1.11) APTT (26.0-36.3) seconds Sodium (133-145) mmol/L Potassium (3.5-5.0) mmol/L Chloride (101-111) mmol/L Carbon Dioxide (22-32) mmol/L Anion Gap (2-11) mmol/L BUN (6-24) mg/dL Creatinine (0.51-0.95) mg/dL Est GFR ( Amer) (>60) Est GFR (Non-Af Amer) (>60) BUN/Creatinine Ratio (8-20) Glucose (70-100) mg/dL Lactic Acid 3.1 H* (0.5-2.0) mmol/L Calcium (8.6-10.3) mg/dL Magnesium (1.9-2.7) mg/dL Total Bilirubin (0.2-1.0) mg/dL AST (13-39) U/L ALT (7-52) U/L Alkaline Phosphatase (34-104) U/L Total Creatine Kinase (10-223) U/L CK-MB (CK-2) (0.6-6.3) ng/mL Troponin I (<0.04) ng/mL C-Reactive Protein (< 5.00) mg/L B-Natriuretic Peptide ( - 100) pg/mL Total Protein (6.4-8.9) g/dL Albumin (3.2-5.2) g/dL Globulin (2-4) g/dL Albumin/Globulin Ratio (1-3) Lipase (11.0-82.0) U/L TSH (0.34-5.60) mcIU/mL Free T4 (0.61-1.12) ng/dL Free T3 (2.5-3.9) pg/mL Assess/Plan/Problems-Billing Assessment: 87 yo F h/o T12 fracture, COPD, HTN p/w hypotension and fatigue in setting of progressive decline in PO intake - Patient Problems (1) Hypotension Comment: resolved with IVF Suspect all in setting of hypovolemia in setting of decreased PO intake over many weeks stop IVF continue to hold metoprolol (2) T12 compression fracture Comment: contributing to decreased mobility, decreased energy, decrease PO intake PT consult appreciated Would benefit from acute physical therapy (3) Impacted stool in rectum Comment: disimpacted c/w MOM, colace, senna (4) Hyponatremia Comment: in setting of hypovolemia resolved with IVF (5) COPD (chronic obstructive pulmonary disease) Comment: stable on no controlled medications (6) DVT prophylaxis Comment: HSQ
[2017-08-10] MEDS: Acetaminophen TAB* 325 MG PO PRN (03:44)
[2017-08-10] MEDS: Heparin VIAL(*) 5000 UNITS/ML VIAL (FIVE THOUSAND) SUBCUT SCH ×3 (05:44→21:01)
[2017-08-10] MEDS: Docusate CAP* 100 MG PO SCH ×2 (08:39→21:01)
[2017-08-10] MEDS: Senna TAB PO SCH ×2 (08:39→21:01)
[2017-08-10] MEDS: Metoprolol Succinate XL TAB* 50 MG PO SCH (10:57)
[2017-08-10 13:44] LABS: BUN/Creatinine Ratio 18.2 (8-20); Calcium 8.3 mg/dL (8.6-10.3); EGFR African American 108.4 (>60); EGFR Non-African American 84.3 (>60); Magnesium 1.7 mg/dL (1.9-2.7); Potassium 4.2 mmol/L (3.5-5.0)
--- NOTE | 2017-08-10 15:51 | ECHO ---
Patient: ANAND CABEZAS [facility] Rec#: [id number] : 1930 Date: 08/10/2017 Age: 87y Height: 160.02 cm / 63.0 in Weight: 52.62 kg / 116.0 lbs Sex: F BSA: 1.53 Room#: 446 Admit Date#: 08/08/2017 Type: Inpatient Referring: Conrado Good MD Reading: Nelson Almanzar MD [employer] Helper: Danielle Stratton,RDCS,RDMS CC: Wilma Gonzalez MD Transthoracic Echocardiogram Indication: Hypotension BP: 143/59 HR: 88 Rhythm: NSR with PACs Findings History: Smoker, COPD, HTN, palpitations Technical Comments: The study quality is good. Left Ventricle: The left ventricular chamber size is normal. Mild to moderate concentric left ventricular hypertrophy is observed. The estimated ejection fraction is 55-60%. Abnormal left ventricular diastolic filling is observed, consistent with impaired relaxation. Left Atrium: The left atrium is moderately dilated. Right Ventricle: The right ventricular chamber size and systolic function are within normal limits. Right Atrium: The right atrium is mildly dilated. There is evidence of an atrial septal aneurysm. Aortic Valve: The aortic valve is trileaflet. The aortic valve leaflets are mildly thickened. There is a trace of aortic regurgitation. There is no evidence of aortic stenosis. Mitral Valve: There is mitral annular calcification. There is mild mitral regurgitation. There is no evidence of mitral stenosis. Tricuspid Valve: The tricuspid valve leaflets are normal. There is mild to moderate tricuspid regurgitation. There is evidence of mild pulmonary hypertension. Pulmonic Valve: There is no evidence of pulmonic valve thickening. There is no evidence of pulmonic regurgitation. Pericardium: There is no significant pericardial effusion. Aorta: The aortic root appears normal. There is no dilatation of the aortic arch. Pulmonary Artery: The main pulmonary artery is not well visualized. Venous: The inferior vena cava is dilated. There is less than 50% respiratory change in the inferior vena cava dimension. Summary: There was not any prior study for comparison. Conclusions Mild to moderate concentric left ventricular hypertrophy is observed. The left ventricular chamber size is normal. The estimated ejection fraction is 55-60%. Abnormal left ventricular diastolic filling is observed, consistent with impaired relaxation. The left atrium is moderately dilated. The right atrium is mildly dilated. There is a trace of aortic regurgitation. There is mild mitral regurgitation. There is mild to moderate tricuspid regurgitation. There is evidence of mild pulmonary hypertension. Measurements Name Value Normal Range RVIDd (AP) 2D 2.3 cm (0.9 - 2.6) RVDdMajor (2D) 2.3 cm (2.2 - 4.4) RAd ISD 4CH 5.3 cm (3.4 - 4.9) RA (A4C)W 3.6 cm (2.9 - 4.6) IVSd (2D) 1.3 cm (0.6 - 1) LVPWd (2D) 1.4 cm (0.6 - 1) LVIDd (2D) 2.9 cm (3.6 - 5.4) LVIDs (2D) 2.5 cm - LV FS (2D) 13 % (25 - 45) Aortic Annulus 1.8 cm (1.4 - 2.6) Ao root diameter (2D) 2.8 cm (2.1 - 3.5) Ascending Ao 3.4 cm (2.1 - 3.4) Aortic arch 2.2 cm (1.8 - 3.4) LA dimension (AP) 2D 4.1 cm (2.3 - 3.8) LAd ISD 4CH 4.9 cm (2.9 - 5.3) LA ISD 4CH W 5.1 cm (2.5 - 4.5) Name Value Normal Range LA ESV SP 4CH (A/L) 68.81 ml - LA ESV SP 2CH (A/L) 64.34 ml - LA ESV BP (A/L) 67.44 ml - LA ESV BP (A/L) index 44 ml/m2 - LA ESV SP 4CH (MOD) 59.21 ml - LA ESV SP 2CH (MOD) 61.49 ml - Name Value Normal Range MV E-wave Vmax 0.5 m/sec - MV deceleration time 256 msec - MV A-wave Vmax 0.7 m/sec - MV E:A ratio 0.8 ratio - LV septal e' Vmax 0.04 m/sec - LV lateral e' Vmax 0.06 m/sec - LV E:e' septal ratio 12.5 ratio - LV E:e' lateral ratio 8.3 ratio - Name Value Normal Range AV Vmax 1 m/sec - AV peak gradient 4 mmHg - LVOT Vmax 0.7 m/sec - LVOT peak gradient 2 mmHg - Name Value Normal Range TR Vmax 2.7 m/sec - TR peak gradient 29 mmHg - RAP 8 mmHg - RVSP 37 mmHg - IVC diameter 2.6 cm - Name Value Normal Range PV Vmax 0.4 m/sec - PV peak gradient 0.7 mmHg -
--- NOTE | 2017-08-10 16:07 | PN ---
Subjective Date of Service: 08/10/17 Interval History: Feels well No CP, SOB, N/V, LH Interested in rehab several beat NSVT today Appears to be in afib on tele and EKG Objective Active Medications: Acetaminophen (Tylenol Tab*) 650 mg PO Q6H PRN PRN Reason: PAIN Last Admin: 08/10/17 03:44 Dose: 650 mg Docusate Sodium (Colace Cap*) 100 mg PO BID [facility] Last Admin: 08/10/17 08:39 Dose: 100 mg Heparin Sodium (Porcine) (Heparin Vial(*)) 5,000 units SUBCUT Q8HR [facility] Last Admin: 08/10/17 14:21 Dose: 5,000 units Magnesium Hydroxide (Milk Of Magnesia Liq*) 30 ml PO Q4H PRN PRN Reason: CONSTIPATION Metoprolol Succinate (Toprol Xl Tab*) 50 mg PO DAILY [facility] Last Admin: 08/10/17 10:57 Dose: 50 mg Ondansetron HCl (Zofran Inj*) 4 mg IV Q4H PRN PRN Reason: NAUSEA Senna (Senokot Tab*) 1 tab PO BID [facility] Last Admin: 08/10/17 08:39 Dose: 1 tab Vital Signs 08/09/17 08/09/17 08/10/17 20:00 23:53 03:45 Temperature 97.7 F 98.3 F 97.3 F Pulse Rate 85 84 78 Respiratory 18 20 20 Rate Blood Pressure 138/55 125/45 143/59 (mmHg) O2 Sat by Pulse 96 94 Oximetry 08/10/17 08/10/17 08/10/17 07:16 07:38 11:00 Temperature 98.8 F Pulse Rate 76 Respiratory 18 18 Rate Blood Pressure 144/54 138/62 (mmHg) O2 Sat by Pulse 95 Oximetry 08/10/17 11:47 Temperature 97.5 F Pulse Rate 95 Respiratory 20 Rate Blood Pressure 137/63 (mmHg) O2 Sat by Pulse 100 Oximetry Oxygen Devices in Use Now: None Appearance: NAD Eyes: No Scleral Icterus, PERRLA Ears/Nose/Mouth/Throat: Clear Oropharnyx, Mucous Membranes Moist Neck: NL Appearance and Movements; NL JVP, Trachea Midline Respiratory: Symmetrical Chest Expansion and Respiratory Effort Cardiovascular: - - IRIR Abdominal: NL Sounds; No Tenderness; No Distention Lymphatic: No Cervical Adenopathy Extremities: No Edema Neurological: Alert and Oriented x 3 Result Diagrams: 08/09/17 08:01 08/10/17 13:11 Additional Lab and Data: Lab Results 08/08/17 08/08/17 08/08/17 Range/Units 12:40 12:40 12:40 WBC (3.5-10.8) 10^3/ul RBC (4.0-5.4) 10^6/ul Hgb (12.0-16.0) g/dl Hct (35-47) % MCV (80-97) fL MCH (27-31) pg MCHC (31-36) g/dl RDW (10.5-15) % Plt Count (150-450) 10^3/ul MPV (7.4-10.4) um3 Neut % (Auto) (38-83) % Lymph % (Auto) (25-47) % [place] % (Auto) (1-9) % Eos % (Auto) (0-6) % Baso % (Auto) (0-2) % Absolute Neuts (auto) (1.5-7.7) 10^3/ul Absolute Lymphs (auto) (1.0-4.8) 10^3/ul Absolute Monos (auto) (0-0.8) 10^3/ul Absolute Eos (auto) (0-0.6) 10^3/ul Absolute Basos (auto) (0-0.2) 10^3/ul Absolute Nucleated RBC 10^3/ul Nucleated RBC % INR (Anticoag Therapy) 0.88 L (0.89-1.11) APTT 28.3 (26.0-36.3) seconds Sodium 127 L (133-145) mmol/L Potassium 4.3 (3.5-5.0) mmol/L Chloride 94 L (101-111) mmol/L Carbon Dioxide 22 (22-32) mmol/L Anion Gap 11 (2-11) mmol/L BUN 16 (6-24) mg/dL Creatinine 0.94 (0.51-0.95) mg/dL Est GFR ( Amer) 72.1 (>60) Est GFR (Non-Af Amer) 56.1 (>60) BUN/Creatinine Ratio 17.0 (8-20) Glucose 132 H (70-100) mg/dL Lactic Acid (0.5-2.0) mmol/L Calcium 8.9 (8.6-10.3) mg/dL Magnesium 1.9 (1.9-2.7) mg/dL Total Bilirubin 0.70 (0.2-1.0) mg/dL AST 41 H (13-39) U/L ALT 22 (7-52) U/L Alkaline Phosphatase 103 (34-104) U/L Total Creatine Kinase 36 (10-223) U/L CK-MB (CK-2) 2.9 (0.6-6.3) ng/mL Troponin I 0.01 (<0.04) ng/mL C-Reactive Protein 6.38 H (< 5.00) mg/L B-Natriuretic Peptide 291 H ( - 100) pg/mL Total Protein 5.5 L (6.4-8.9) g/dL Albumin 2.9 L (3.2-5.2) g/dL Globulin 2.6 (2-4) g/dL Albumin/Globulin Ratio 1.1 (1-3) Lipase 66 (11.0-82.0) U/L TSH 7.87 H (0.34-5.60) mcIU/mL Free T4 1.15 H (0.61-1.12) ng/dL Free T3 3.00 (2.5-3.9) pg/mL 08/08/17 08/08/17 Range/Units 12:40 12:40 WBC 10.6 (3.5-10.8) 10^3/ul RBC 4.37 (4.0-5.4) 10^6/ul Hgb 14.5 (12.0-16.0) g/dl Hct 43 (35-47) % MCV 97 (80-97) fL MCH 33 H (27-31) pg MCHC 34 (31-36) g/dl RDW 17 H (10.5-15) % Plt Count 481 H (150-450) 10^3/ul MPV 6 L (7.4-10.4) um3 Neut % (Auto) 77.3 (38-83) % Lymph % (Auto) 13.9 L (25-47) % [place] % (Auto) 7.7 (1-9) % Eos % (Auto) 0.6 (0-6) % Baso % (Auto) 0.5 (0-2) % Absolute Neuts (auto) 8.2 H (1.5-7.7) 10^3/ul Absolute Lymphs (auto) 1.5 (1.0-4.8) 10^3/ul Absolute Monos (auto) 0.8 (0-0.8) 10^3/ul Absolute Eos (auto) 0.1 (0-0.6) 10^3/ul Absolute Basos (auto) 0.1 (0-0.2) 10^3/ul Absolute Nucleated RBC 0.02 10^3/ul Nucleated RBC % 0.2 INR (Anticoag Therapy) (0.89-1.11) APTT (26.0-36.3) seconds Sodium (133-145) mmol/L Potassium (3.5-5.0) mmol/L Chloride (101-111) mmol/L Carbon Dioxide (22-32) mmol/L Anion Gap (2-11) mmol/L BUN (6-24) mg/dL Creatinine (0.51-0.95) mg/dL Est GFR ( Amer) (>60) Est GFR (Non-Af Amer) (>60) BUN/Creatinine Ratio (8-20) Glucose (70-100) mg/dL Lactic Acid 3.1 H* (0.5-2.0) mmol/L Calcium (8.6-10.3) mg/dL Magnesium (1.9-2.7) mg/dL Total Bilirubin (0.2-1.0) mg/dL AST (13-39) U/L ALT (7-52) U/L Alkaline Phosphatase (34-104) U/L Total Creatine Kinase (10-223) U/L CK-MB (CK-2) (0.6-6.3) ng/mL Troponin I (<0.04) ng/mL C-Reactive Protein (< 5.00) mg/L B-Natriuretic Peptide ( - 100) pg/mL Total Protein (6.4-8.9) g/dL Albumin (3.2-5.2) g/dL Globulin (2-4) g/dL Albumin/Globulin Ratio (1-3) Lipase (11.0-82.0) U/L TSH (0.34-5.60) mcIU/mL Free T4 (0.61-1.12) ng/dL Free T3 (2.5-3.9) pg/mL Microbiology and Other Data: Microbiology 08/08/17 23:15 Urine Culture - Final Urine Assess/Plan/Problems-Billing Assessment: 87 yo F h/o T12 fracture, COPD, HTN p/w hypotension and fatigue in setting of progressive decline in PO intake - Patient Problems (1) Atrial fibrillation Comment: Carries history of "palpitations" but no formal h/o atrial fibrillation Will restart metoprolol that was held on admission 2/2 hypotension If remains in afib tomorrow will discuss anticoagulation (2) Hypotension Comment: resolved with IVF Suspect all in setting of hypovolemia in setting of decreased PO intake over many weeks stop IVF continue to hold metoprolol (3) T12 compression fracture Comment: contributing to decreased mobility, decreased energy, decrease PO intake PT consult appreciated Would benefit from acute physical therapy (4) Impacted stool in rectum Comment: disimpacted c/w MOM, colace, senna enema 08/10 (5) Hyponatremia Comment: in setting of hypovolemia resolved with IVF (6) COPD (chronic obstructive pulmonary disease) Comment: stable on no controlled medications (7) DVT prophylaxis Comment: HSQ
[2017-08-11] MEDS: Heparin VIAL(*) 5000 UNITS/ML VIAL (FIVE THOUSAND) SUBCUT SCH ×2 (05:09→13:42)
[2017-08-11] MEDS: Metoprolol Succinate XL TAB* 50 MG PO SCH (08:59)
[2017-08-11] MEDS: Acetaminophen TAB* 325 MG PO PRN (08:59)
[2017-08-11] MEDS: Senna TAB PO SCH ×2 (09:00→19:57)
[2017-08-11] MEDS: Docusate CAP* 100 MG PO SCH ×2 (09:00→19:57)
[2017-08-11] MEDS: HYDROcodone/ACETAMIN 5-325 MG* 1 TAB PO PRN (13:42)
[2017-08-11] MEDS ORDERED: Warfarin TAB(*) 5 MG PO ONE (17:00)
--- NOTE | 2017-08-11 17:29 | PN ---
Progress Note - Progress Note Date of Service: 08/11/17 Note: Please note, due to current Real Intent problems the usual "hospitalist progress note" template is unavailable. S: Denies SSOB, CP, N/V. Would like something "stronger" for pain when working with PT. O: NAD IRIR heart rate, rate controlled lungs CTAb abd soft NT, ND, +bs Ext warm well perfused no c/c/e AOx3, CN2-12 intact Vital Signs: Temp Pulse Resp BP Pulse Ox 98.3 F 76 18 102/47 95 08/11/17 15:13 08/11/17 15:13 08/11/17 15:42 08/11/17 15:13 08/11/17 15:13 A/P: 87 yo F h/o T12 fracture, COPD, HTN p/w hypotension in setting of decreased mobility and decreased PO intake Afib: Discussed diagnosis. Has history of epistaxis in 2014 with ICU and posterior packing. Culprit vessel never found. -coumadin 5 mg tonight coumadin 2mg starting tomorrow. Lovenox 1.5mg/kg starting tomorrow in AM T12 fracture -add hydrocodone Hyponatremia - improved with NS COPD - stable on no controller medications Disposition - declined for admission to [facility], no applying to [facility]
[2017-08-11] MEDS ORDERED: Heparin VIAL(*) 5000 UNITS/ML VIAL (FIVE THOUSAND) SUBCUT SCH (22:00)
[2017-08-12 05:33] LABS: BUN/Creatinine Ratio 13.5 (8-20); Calcium 8.1 mg/dL (8.6-10.3); EGFR Non-African American 73.9 (>60); Potassium 3.8 mmol/L (3.5-5.0)
[2017-08-12] MEDS: Senna TAB PO SCH ×2 (07:26→19:54)
[2017-08-12] MEDS: HYDROcodone/ACETAMIN 5-325 MG* 1 TAB PO PRN ×3 (07:26→17:49)
[2017-08-12] MEDS: Metoprolol Succinate XL TAB* 50 MG PO SCH (07:27)
[2017-08-12] MEDS: Docusate CAP* 100 MG PO SCH ×2 (07:28→19:54)
[2017-08-12] MEDS ORDERED: Enoxaparin(*) 80 MG/0.8 ML SYR SUBCUT SCH (09:00)
[2017-08-12 11:01] LABS: Magnesium 1.5 mg/dL (1.9-2.7)
--- NOTE | 2017-08-12 13:02 | PN ---
Subjective Date of Service: 08/12/17 Interval History: No overnight events. Ms. Don complains of feeling lightheaded in bed. She has not been out of bed yet today. She is unable to describe it further. She denies dizziness, headache, weakness, but does endorse fatigue. Her vision is blurry, but she says it is unchanged from baseline. Family History: Unchanged from Admission Social History: Unchanged from Admission Past Medical History: Unchanged from Admission Objective Active Medications: Acetaminophen (Tylenol Tab*) 650 mg PO Q6H PRN PRN Reason: PAIN Last Admin: 08/11/17 08:59 Dose: 650 mg Hydrocodone Bitart/Acetaminophen ([place] 5-325 Tab*) 1 tab PO Q4H PRN PRN Reason: PAIN Last Admin: 08/12/17 07:26 Dose: 1 tab Docusate Sodium (Colace Cap*) 100 mg PO BID [facility] Last Admin: 08/12/17 07:28 Dose: Not Given Enoxaparin Sodium (Lovenox(*)) 75 mg SUBCUT DAILY [facility] Last Admin: 08/12/17 07:27 Dose: 75 mg Magnesium Hydroxide (Milk Of Magnesia Liq*) 30 ml PO Q4H PRN PRN Reason: CONSTIPATION Metoprolol Succinate (Toprol Xl Tab*) 50 mg PO DAILY [facility] Last Admin: 08/12/17 07:27 Dose: 50 mg Ondansetron HCl (Zofran Inj*) 4 mg IV Q4H PRN PRN Reason: NAUSEA Pharmacy Profile Note (Coumadin Daily Reminder*) 0 note FOLLOW UP 1700 [facility] Last Admin: 08/11/17 16:51 Dose: 1 note Senna (Senokot Tab*) 1 tab PO BID [facility] Last Admin: 08/12/17 07:26 Dose: Not Given Warfarin Sodium (Coumadin Tab(*)) 2 mg PO DAILY@1700 [facility] PRN Reason: Protocol Vital Signs 08/11/17 08/11/17 08/11/17 13:42 15:13 15:42 Temperature 98.3 F Pulse Rate 76 Respiratory 16 16 18 Rate Blood Pressure 102/47 (mmHg) O2 Sat by Pulse 95 Oximetry 08/11/17 08/11/17 08/11/17 19:37 19:42 23:30 Temperature 97.5 F 97.7 F Pulse Rate 106 101 Respiratory 20 20 16 Rate Blood Pressure 108/46 109/41 (mmHg) O2 Sat by Pulse 96 98 Oximetry 08/12/17 08/12/17 08/12/17 03:27 07:26 07:34 Temperature 97.7 F Pulse Rate 84 Respiratory 20 16 16 Rate Blood Pressure 99/48 (mmHg) O2 Sat by Pulse Oximetry 08/12/17 08/12/17 08/12/17 07:44 07:49 09:26 Temperature 97.5 F Pulse Rate 31 80 Respiratory 18 18 Rate Blood Pressure 116/60 (mmHg) O2 Sat by Pulse 99 Oximetry 08/12/17 09:34 Temperature 97.3 F Pulse Rate 79 Respiratory Rate Blood Pressure 95/42 (mmHg) O2 Sat by Pulse 95 Oximetry Oxygen Devices in Use Now: None Appearance: alert, frail, ill appearing but no distress. oriented and appropriate. Eyes: No Scleral Icterus, PERRLA Ears/Nose/Mouth/Throat: NL Teeth, Lips, Gums, Clear Oropharnyx Neck: NL Appearance and Movements; NL JVP Respiratory: Symmetrical Chest Expansion and Respiratory Effort, Clear to Auscultation Cardiovascular: No Edema, - - irregular rhythm, systolic murmur at rusb Abdominal: NL Sounds; No Tenderness; No Distention Lymphatic: No Cervical Adenopathy Extremities: No Edema Neurological: Alert and Oriented x 3 Result Diagrams: 08/09/17 08:01 08/12/17 04:58 Additional Lab and Data: Lab Results 08/08/17 08/08/17 08/08/17 Range/Units 12:40 12:40 12:40 WBC (3.5-10.8) 10^3/ul RBC (4.0-5.4) 10^6/ul Hgb (12.0-16.0) g/dl Hct (35-47) % MCV (80-97) fL MCH (27-31) pg MCHC (31-36) g/dl RDW (10.5-15) % Plt Count (150-450) 10^3/ul MPV (7.4-10.4) um3 Neut % (Auto) (38-83) % Lymph % (Auto) (25-47) % [place] % (Auto) (1-9) % Eos % (Auto) (0-6) % Baso % (Auto) (0-2) % Absolute Neuts (auto) (1.5-7.7) 10^3/ul Absolute Lymphs (auto) (1.0-4.8) 10^3/ul Absolute Monos (auto) (0-0.8) 10^3/ul Absolute Eos (auto) (0-0.6) 10^3/ul Absolute Basos (auto) (0-0.2) 10^3/ul Absolute Nucleated RBC 10^3/ul Nucleated RBC % INR (Anticoag Therapy) 0.88 L (0.89-1.11) APTT 28.3 (26.0-36.3) seconds Sodium 127 L (133-145) mmol/L Potassium 4.3 (3.5-5.0) mmol/L Chloride 94 L (101-111) mmol/L Carbon Dioxide 22 (22-32) mmol/L Anion Gap 11 (2-11) mmol/L BUN 16 (6-24) mg/dL Creatinine 0.94 (0.51-0.95) mg/dL Est GFR ( Amer) 72.1 (>60) Est GFR (Non-Af Amer) 56.1 (>60) BUN/Creatinine Ratio 17.0 (8-20) Glucose 132 H (70-100) mg/dL Lactic Acid (0.5-2.0) mmol/L Calcium 8.9 (8.6-10.3) mg/dL Magnesium 1.9 (1.9-2.7) mg/dL Total Bilirubin 0.70 (0.2-1.0) mg/dL AST 41 H (13-39) U/L ALT 22 (7-52) U/L Alkaline Phosphatase 103 (34-104) U/L Total Creatine Kinase 36 (10-223) U/L CK-MB (CK-2) 2.9 (0.6-6.3) ng/mL Troponin I 0.01 (<0.04) ng/mL C-Reactive Protein 6.38 H (< 5.00) mg/L B-Natriuretic Peptide 291 H ( - 100) pg/mL Total Protein 5.5 L (6.4-8.9) g/dL Albumin 2.9 L (3.2-5.2) g/dL Globulin 2.6 (2-4) g/dL Albumin/Globulin Ratio 1.1 (1-3) Lipase 66 (11.0-82.0) U/L TSH 7.87 H (0.34-5.60) mcIU/mL Free T4 1.15 H (0.61-1.12) ng/dL Free T3 3.00 (2.5-3.9) pg/mL 08/08/17 08/08/17 Range/Units 12:40 12:40 WBC 10.6 (3.5-10.8) 10^3/ul RBC 4.37 (4.0-5.4) 10^6/ul Hgb 14.5 (12.0-16.0) g/dl Hct 43 (35-47) % MCV 97 (80-97) fL MCH 33 H (27-31) pg MCHC 34 (31-36) g/dl RDW 17 H (10.5-15) % Plt Count 481 H (150-450) 10^3/ul MPV 6 L (7.4-10.4) um3 Neut % (Auto) 77.3 (38-83) % Lymph % (Auto) 13.9 L (25-47) % [place] % (Auto) 7.7 (1-9) % Eos % (Auto) 0.6 (0-6) % Baso % (Auto) 0.5 (0-2) % Absolute Neuts (auto) 8.2 H (1.5-7.7) 10^3/ul Absolute Lymphs (auto) 1.5 (1.0-4.8) 10^3/ul Absolute Monos (auto) 0.8 (0-0.8) 10^3/ul Absolute Eos (auto) 0.1 (0-0.6) 10^3/ul Absolute Basos (auto) 0.1 (0-0.2) 10^3/ul Absolute Nucleated RBC 0.02 10^3/ul Nucleated RBC % 0.2 INR (Anticoag Therapy) (0.89-1.11) APTT (26.0-36.3) seconds Sodium (133-145) mmol/L Potassium (3.5-5.0) mmol/L Chloride (101-111) mmol/L Carbon Dioxide (22-32) mmol/L Anion Gap (2-11) mmol/L BUN (6-24) mg/dL Creatinine (0.51-0.95) mg/dL Est GFR ( Amer) (>60) Est GFR (Non-Af Amer) (>60) BUN/Creatinine Ratio (8-20) Glucose (70-100) mg/dL Lactic Acid 3.1 H* (0.5-2.0) mmol/L Calcium (8.6-10.3) mg/dL Magnesium (1.9-2.7) mg/dL Total Bilirubin (0.2-1.0) mg/dL AST (13-39) U/L ALT (7-52) U/L Alkaline Phosphatase (34-104) U/L Total Creatine Kinase (10-223) U/L CK-MB (CK-2) (0.6-6.3) ng/mL Troponin I (<0.04) ng/mL C-Reactive Protein (< 5.00) mg/L B-Natriuretic Peptide ( - 100) pg/mL Total Protein (6.4-8.9) g/dL Albumin (3.2-5.2) g/dL Globulin (2-4) g/dL Albumin/Globulin Ratio (1-3) Lipase (11.0-82.0) U/L TSH (0.34-5.60) mcIU/mL Free T4 (0.61-1.12) ng/dL Free T3 (2.5-3.9) pg/mL Microbiology and Other Data: Microbiology 08/08/17 23:15 Urine Culture - Final Urine Assess/Plan/Problems-Billing Assessment: 87 yo F h/o T12 fracture, COPD, HTN p/w hypotension and fatigue in setting of progressive decline in PO intake 1. Fatigue, lightheadedness Unclear if this is metabolic, infectious, cardiac, or simply a progresive deconditioning over the past several months. She does not appear markedly volume deplete, but given her presentation, we will check orthostatic vital signs, and she may need more volume resuscitation. UA is negative, no other infectious symptoms. She is in an atrial bigeminy this morning, which may be contributing to her vague symptoms. Monitor on telemetry. Needs more PT. 2. Sinus dysrhythmia She is not in atrial fibrillation, and I do not believe that she was in atrial fibrillation at presentation. I discussed this with cardiology, who express concern for an infiltrative cardiomyopathy given her arrhythmia and low voltage. I will discuss this work up with Ms. Don and her family to see if pursuing a fat pad biopsy is of interest to them. So far they have preferred more conservative management, but we will discuss this further. 3. COPD no evidence of exacerbation 4. T12 compression fracture continue heat/cold as needed and PT
[2017-08-12] MEDS ORDERED: Magnesium Sulfate 2 GM IV* 2 GM/50 ML BAG IVPB ONE (13:11)
[2017-08-12] MEDS ORDERED: Enoxaparin(*) 40 MG/0.4 ML SYR SUBCUT SCH (14:00)
[2017-08-12] MEDS ORDERED: Warfarin TAB(*) 2 MG PO SCH (17:00)
[2017-08-13] MEDS: HYDROcodone/ACETAMIN 5-325 MG* 1 TAB PO PRN ×3 (04:32→18:07)
[2017-08-13 05:25] LABS: Hematocrit 36 % (35-47); Hemoglobin 12.2 g/dl (12.0-16.0); Mean Corpuscular HGB Conc 34 g/dl (31-36); Mean Corpuscular Hemoglobin 34 pg (27-31); Mean Corpuscular Volume 99 fL (80-97); Mean Platelet Volume 7 um3 (7.4-10.4); Red Blood Count 3.64 10^6/ul (4.0-5.4); Red Cell Distribution Width 18 % (10.5-15); White Blood Count 6.2 10^3/ul (3.5-10.8)
[2017-08-13 05:49] LABS: BUN/Creatinine Ratio 14.8 (8-20); Calcium 8.1 mg/dL (8.6-10.3); EGFR African American 77.8 (>60); EGFR Non-African American 60.5 (>60); Phosphorus 3.5 mg/dL (2.5-5.0); Potassium 3.7 mmol/L (3.5-5.0)
[2017-08-13 06:22] LABS: TSH (Thyroid Stimulating Horm) 2.95 mcIU/mL (0.34-5.60)
[2017-08-13] MEDS: Enoxaparin(*) 40 MG/0.4 ML SYR SUBCUT SCH (07:52)
[2017-08-13] MEDS: Docusate CAP* 100 MG PO SCH ×2 (07:53→20:23)
[2017-08-13] MEDS: Senna TAB PO SCH ×2 (07:53→20:23)
[2017-08-13] MEDS: Metoprolol Succinate XL TAB* 50 MG PO SCH (07:53)
[2017-08-13] MEDS ORDERED: Potassium Chlor TAB* 20 MEQ TAB.ER PO ONE (09:36)
[2017-08-13] MEDS ORDERED: NS 0.9% 500 ML BAG* 500 ML IV ONE (10:00)
--- NOTE | 2017-08-13 12:30 | PN ---
Subjective Date of Service: 08/13/17 Interval History: Seen with son at bedside events reviewed from today - low SBP this AM responded to 500 cc NS bolus Denies CP/SOB, N/V, LH but did report LH at time of low SBP Reports good food intake but low fluid intake Family History: Unchanged from Admission Social History: Unchanged from Admission Past Medical History: Unchanged from Admission Objective Active Medications: Acetaminophen (Tylenol Tab*) 650 mg PO Q6H PRN PRN Reason: PAIN Last Admin: 08/11/17 08:59 Dose: 650 mg Hydrocodone Bitart/Acetaminophen ([place] 5-325 Tab*) 1 tab PO Q4H PRN PRN Reason: PAIN Last Admin: 08/13/17 04:32 Dose: 1 tab Docusate Sodium (Colace Cap*) 100 mg PO BID [facility] Last Admin: 08/13/17 07:53 Dose: Not Given Enoxaparin Sodium (Lovenox(*)) 40 mg SUBCUT Q24H [facility] Last Admin: 08/13/17 07:52 Dose: 40 mg Sodium Chloride (Ns 0.9% 500 Ml Bag*) 500 mls @ 200 mls/hr IV PER RATE [facility] Magnesium Hydroxide (Milk Of Magnesia Liq*) 30 ml PO Q4H PRN PRN Reason: CONSTIPATION Metoprolol Succinate (Toprol Xl Tab*) 50 mg PO DAILY [facility] Last Admin: 08/13/17 07:53 Dose: Not Given Ondansetron HCl (Zofran Inj*) 4 mg IV Q4H PRN PRN Reason: NAUSEA Pharmacy Profile Note (Coumadin Daily Reminder*) 0 note FOLLOW UP 1700 [facility] Last Admin: 08/12/17 17:08 Dose: 1 note Senna (Senokot Tab*) 1 tab PO BID [facility] Last Admin: 08/13/17 07:53 Dose: Not Given Vital Signs 08/12/17 08/12/17 08/12/17 13:43 15:34 15:38 Temperature 97.6 F Pulse Rate 38 75 Respiratory 18 16 Rate Blood Pressure 96/45 (mmHg) O2 Sat by Pulse 94 Oximetry 08/12/17 08/12/17 08/12/17 15:43 17:49 19:20 Temperature Pulse Rate Respiratory 18 18 18 Rate Blood Pressure (mmHg) O2 Sat by Pulse Oximetry 08/12/17 08/12/17 08/12/17 19:47 19:49 23:36 Temperature 97.4 F 98.2 F Pulse Rate 36 35 Respiratory 16 18 16 Rate Blood Pressure 90/44 105/49 (mmHg) O2 Sat by Pulse 95 94 Oximetry 08/12/17 08/13/17 08/13/17 23:53 03:44 04:32 Temperature 97.7 F Pulse Rate 80 107 Respiratory 16 16 Rate Blood Pressure 112/43 (mmHg) O2 Sat by Pulse 95 Oximetry 08/13/17 08/13/17 08/13/17 06:32 07:42 07:47 Temperature 96.3 F Pulse Rate 82 Respiratory 18 20 Rate Blood Pressure 63/53 80/60 (mmHg) O2 Sat by Pulse 96 Oximetry 08/13/17 08/13/17 08/13/17 08:00 08:30 08:54 Temperature Pulse Rate 104 74 Respiratory 20 Rate Blood Pressure 116/38 96/52 (mmHg) O2 Sat by Pulse 95 98 Oximetry 08/13/17 09:34 Temperature Pulse Rate 67 Respiratory Rate Blood Pressure 105/54 (mmHg) O2 Sat by Pulse Oximetry Oxygen Devices in Use Now: None Appearance: NAD Eyes: No Scleral Icterus, PERRLA Ears/Nose/Mouth/Throat: Clear Oropharnyx, - - dry MM Respiratory: Symmetrical Chest Expansion and Respiratory Effort, Clear to Auscultation Cardiovascular: RRR Abdominal: NL Sounds; No Tenderness; No Distention, No Hepatosplenomegaly Lymphatic: No Cervical Adenopathy Extremities: No Edema Skin: No Rash or Ulcers Neurological: Alert and Oriented x 3 Result Diagrams: 08/13/17 04:56 08/13/17 04:56 Additional Lab and Data: Lab Results 08/08/17 08/08/17 08/08/17 Range/Units 12:40 12:40 12:40 WBC (3.5-10.8) 10^3/ul RBC (4.0-5.4) 10^6/ul Hgb (12.0-16.0) g/dl Hct (35-47) % MCV (80-97) fL MCH (27-31) pg MCHC (31-36) g/dl RDW (10.5-15) % Plt Count (150-450) 10^3/ul MPV (7.4-10.4) um3 Neut % (Auto) (38-83) % Lymph % (Auto) (25-47) % [place] % (Auto) (1-9) % Eos % (Auto) (0-6) % Baso % (Auto) (0-2) % Absolute Neuts (auto) (1.5-7.7) 10^3/ul Absolute Lymphs (auto) (1.0-4.8) 10^3/ul Absolute Monos (auto) (0-0.8) 10^3/ul Absolute Eos (auto) (0-0.6) 10^3/ul Absolute Basos (auto) (0-0.2) 10^3/ul Absolute Nucleated RBC 10^3/ul Nucleated RBC % INR (Anticoag Therapy) 0.88 L (0.89-1.11) APTT 28.3 (26.0-36.3) seconds Sodium 127 L (133-145) mmol/L Potassium 4.3 (3.5-5.0) mmol/L Chloride 94 L (101-111) mmol/L Carbon Dioxide 22 (22-32) mmol/L Anion Gap 11 (2-11) mmol/L BUN 16 (6-24) mg/dL Creatinine 0.94 (0.51-0.95) mg/dL Est GFR ( Amer) 72.1 (>60) Est GFR (Non-Af Amer) 56.1 (>60) BUN/Creatinine Ratio 17.0 (8-20) Glucose 132 H (70-100) mg/dL Lactic Acid (0.5-2.0) mmol/L Calcium 8.9 (8.6-10.3) mg/dL Magnesium 1.9 (1.9-2.7) mg/dL Total Bilirubin 0.70 (0.2-1.0) mg/dL AST 41 H (13-39) U/L ALT 22 (7-52) U/L Alkaline Phosphatase 103 (34-104) U/L Total Creatine Kinase 36 (10-223) U/L CK-MB (CK-2) 2.9 (0.6-6.3) ng/mL Troponin I 0.01 (<0.04) ng/mL C-Reactive Protein 6.38 H (< 5.00) mg/L B-Natriuretic Peptide 291 H ( - 100) pg/mL Total Protein 5.5 L (6.4-8.9) g/dL Albumin 2.9 L (3.2-5.2) g/dL Globulin 2.6 (2-4) g/dL Albumin/Globulin Ratio 1.1 (1-3) Lipase 66 (11.0-82.0) U/L TSH 7.87 H (0.34-5.60) mcIU/mL Free T4 1.15 H (0.61-1.12) ng/dL Free T3 3.00 (2.5-3.9) pg/mL 08/08/17 08/08/17 Range/Units 12:40 12:40 WBC 10.6 (3.5-10.8) 10^3/ul RBC 4.37 (4.0-5.4) 10^6/ul Hgb 14.5 (12.0-16.0) g/dl Hct 43 (35-47) % MCV 97 (80-97) fL MCH 33 H (27-31) pg MCHC 34 (31-36) g/dl RDW 17 H (10.5-15) % Plt Count 481 H (150-450) 10^3/ul MPV 6 L (7.4-10.4) um3 Neut % (Auto) 77.3 (38-83) % Lymph % (Auto) 13.9 L (25-47) % [place] % (Auto) 7.7 (1-9) % Eos % (Auto) 0.6 (0-6) % Baso % (Auto) 0.5 (0-2) % Absolute Neuts (auto) 8.2 H (1.5-7.7) 10^3/ul Absolute Lymphs (auto) 1.5 (1.0-4.8) 10^3/ul Absolute Monos (auto) 0.8 (0-0.8) 10^3/ul Absolute Eos (auto) 0.1 (0-0.6) 10^3/ul Absolute Basos (auto) 0.1 (0-0.2) 10^3/ul Absolute Nucleated RBC 0.02 10^3/ul Nucleated RBC % 0.2 INR (Anticoag Therapy) (0.89-1.11) APTT (26.0-36.3) seconds Sodium (133-145) mmol/L Potassium (3.5-5.0) mmol/L Chloride (101-111) mmol/L Carbon Dioxide (22-32) mmol/L Anion Gap (2-11) mmol/L BUN (6-24) mg/dL Creatinine (0.51-0.95) mg/dL Est GFR ( Amer) (>60) Est GFR (Non-Af Amer) (>60) BUN/Creatinine Ratio (8-20) Glucose (70-100) mg/dL Lactic Acid 3.1 H* (0.5-2.0) mmol/L Calcium (8.6-10.3) mg/dL Magnesium (1.9-2.7) mg/dL Total Bilirubin (0.2-1.0) mg/dL AST (13-39) U/L ALT (7-52) U/L Alkaline Phosphatase (34-104) U/L Total Creatine Kinase (10-223) U/L CK-MB (CK-2) (0.6-6.3) ng/mL Troponin I (<0.04) ng/mL C-Reactive Protein (< 5.00) mg/L B-Natriuretic Peptide ( - 100) pg/mL Total Protein (6.4-8.9) g/dL Albumin (3.2-5.2) g/dL Globulin (2-4) g/dL Albumin/Globulin Ratio (1-3) Lipase (11.0-82.0) U/L TSH (0.34-5.60) mcIU/mL Free T4 (0.61-1.12) ng/dL Free T3 (2.5-3.9) pg/mL Microbiology and Other Data: Microbiology 08/08/17 23:15 Urine Culture - Final Urine Assess/Plan/Problems-Billing Assessment: 87 yo F h/o T12 fracture, COPD, HTN p/w hypotension and fatigue in setting of progressive decline in PO intake - Patient Problems (1) Atrial fibrillation Comment: Carries history of "palpitations" but no formal h/o atrial fibrillation Dr. Alcantar reviewed EKGs with cardiology who did not think EKG represented afib I think she will warrent long outpatient monitoring coumadin discontinued metoprolol held this AM for hypotension (2) Hypotension Comment: resolved with IVF on presentation and again today Suspect all in setting of hypovolemia in setting of decreased PO intake over many weeks additional 500cc (total 1L) today (3) T12 compression fracture Comment: contributing to decreased mobility, decreased energy, decrease PO intake PT consult appreciated Would benefit from acute physical therapy [facility] remains stable (4) Impacted stool in rectum Comment: disimpacted c/w MOM, colace, senna enema 08/10 (5) Hyponatremia Comment: in setting of hypovolemia resolved with IVF (6) COPD (chronic obstructive pulmonary disease) Comment: stable on no controlled medications (7) DVT prophylaxis Comment: lovenox
[2017-08-13] MEDS ORDERED: NS 0.9% 500 ML BAG* 500 ML IV SCH (13:00)
[2017-08-14] MEDS: HYDROcodone/ACETAMIN 5-325 MG* 1 TAB PO PRN ×3 (01:12→12:36)
[2017-08-14] MEDS: Docusate CAP* 100 MG PO SCH (08:11)
[2017-08-14] MEDS: Metoprolol Succinate XL TAB* 50 MG PO SCH (08:12)
[2017-08-14] MEDS: Enoxaparin(*) 40 MG/0.4 ML SYR SUBCUT SCH (08:12)
[2017-08-14] MEDS: Senna TAB PO SCH (09:39)
[2017-08-14] MEDS ORDERED: Polyethylene Glycol 3350* 17 GM PACKET PO PRN (11:03)
[2017-08-14 12:54] VITALS: BP 108/66
--- NOTE | 2017-08-14 13:10 | DS ---
DISCHARGE SUMMARY: DATE OF ADMISSION: 08/08/17 DATE OF DISCHARGE: ADMITTING PROVIDER: Conrado Good MD. ATTENDING PHYSICIAN: Matthieu Lara MD. PRIMARY CARE PROVIDER: Dr. Gonzalez. CHIEF COMPLAINT: Fatigue, hypotension, weakness. PRINCIPAL DIAGNOSES: 1. Hypovolemia. 2. Hypotension. 3. Hyponatremia in the setting of poor p.o. intake. SECONDARY DIAGNOSES: Include: 1. Low back pain. 2. Recent urinary tract infection. 3. Chronic obstructive pulmonary disease. 4. History of hypertension. 5. History of Epistaxis. 6. Palpitations. HISTORY OF PRESENT ILLNESS AND HOSPITAL COURSE: This is an 87-year-old female with past medical history as above with recent T12 fracture at the beginning of June after lifting the top of her toilet bowl. She since had progressive decline with malaise and weakness. She started a BRAT diet secondary to diarrhea (of a few months' duration) and then started Imodium and since that time had 12 days of constipation. Over the last several months, she had been eating and drinking less. She was treated with 5 days for urinary tract infection approximately 2 weeks prior to presentation (unknown antibiotic, though family thinks penicillin based). She was brought to the emergency room and found to have a blood pressure of 59/29, was given 2 L of volume resuscitation with improvement in her blood pressures. Sodium was noted to be low at 127. Patient had repeat urinalysis, which did not show any evidence of infection. The patient was seen by Physical Therapy during the course of stay, which recommended custodial facility ([facility] for acute PT). The patient additionally became hypotensive the day prior to discharge and received another 1 L total of normal saline bolus. Sodium upon discharge was 132. The patient was impacted upon presentation and disimpacted and started on a bowel regimen. She had additional studies, which included a chest x- ray on the , which showed no acute process, and abdomen and pelvis CT scan on 08/08/17, which showed diverticulosis, large stool ball within the rectum and a lumbar spine CT, which showed osteopenia, scoliosis, interval progression of the compression T12 fracture with moderate osseous retropulsion resulting in moderate narrowing of the central canal at T11-T12 and mild narrowing at T12-L1 , degenerative disk disease and osteoarthritis, with [id number] narrowing of the central canal at L2-L3 with moderate narrowing at L3-L4 and L4- L5. Patient had a transthoracic echocardiogram, which was notable for preserved EF of 55% to 60%, some abnormal left ventricular diastolic filling consistent with impaired relaxation, [id number] tricuspid regurgitation, moderate left atrium dilation. Of note, there was discussion between cardiology and the hospitalist team (Dr. Alcantar), who evaluated the EKG and thought that her EKG was consistent with PACs and low voltage rather than atrial fibrillation. Upon discharge, the patient should consider following up with Cardiology for longer term monitoring. She was stopped off any Coumadin. Atrial fibrillation would have been a new diagnosis for her. MEDICATIONS UPON DISCHARGE: Include: 1. Metoprolol succinate 50 mg daily. 2. Naproxen 375 mg p.o. b.i.d. 3. MiraLax 17 g p.o. daily (new). 4. Senokot one tab p.o. b.i.d. (new). 5. Docusate 100 mg p.o. b.i.d. (new). 6. Hydrocodone/acetaminophen 5/325 mg p.o. q.6 hours p.r.n. 7. Tylenol 325 mg 3 tabs p.o. q.6 hours (of note total daily dose of Tylenol not to exceed 4 g daily). DISCHARGE DISPOSITION: [facility] for acute PT. DISCHARGE DIET: Unrestricted, unchanged. FOLLOWUP: The patient should follow up with Dr. Gonzalez upon discharge from [facility] and consideration for cardiovascular consultation as an outpatient for frequent paroxysmal atrial contractions versus paroxysmal atrial fibrillation. TIME SPENT ON DISCHARGE: 35 minutes. [id number]/[facility] #: [id number] NITIN
== END 2017-08-14 14:00 | DRG 315 ==
LOC: ED 11:54 → MEDTELE 15:24
PROVIDERS: ADMIT Internal Medicine; ATTEND Internal Medicine
DX: I95.9 Hypotension, unspecified (principal); E87.1 Hypo-osmolality and hyponatremia; E86.1 Hypovolemia; I48.91 Unspecified atrial fibrillation; E03.9 Hypothyroidism, unspecified; M41.9 Scoliosis, unspecified; I07.1 Rheumatic tricuspid insufficiency; F17.210 Nicotine dependence, cigarettes, uncomplicated; H91.90 Unspecified hearing loss, unspecified ear; I10 Essential (primary) hypertension; J44.9 Chronic obstructive pulmonary disease, unspecified; K57.90 Diverticulosis of intestine, part unspecified, without perforation or abscess without bleeding; M19.90 Unspecified osteoarthritis, unspecified site; K56.41 Fecal impaction; M54.5 Low back pain; M85.88 Other specified disorders of bone density and structure, other site; M47.9 Spondylosis, unspecified; Z97.4 Presence of external hearing-aid; Z90.49 Acquired absence of other specified parts of digestive tract; Z85.828 Personal history of other malignant neoplasm of skin; Z82.49 Family history of ischemic heart disease and other diseases of the circulatory system; S22.089G Unspecified fracture of T11-T12 vertebra, subsequent encounter for fracture with delayed healing
CPT/HCPCS: 36415; 71010; 72131; 74176; 80048; 80053; 81003; 81015; 82550; 82553; 83605; 83690; 83735; 83880; 84100; 84439; 84443; 84481; 84484; 85025; 85610; 85730; 86140; 87086; 90686; 93005; 93306; A9270-GY; J1644; J1650; J3475